=== PATIENT | male | born 1965 | race Caucasian/White ===

== ENCOUNTER 2019-03-09 09:53 | Emergency (ER) | payer OTHER, SELFPAY ==
[2019-03-09] VITALS (10 sets, daily range): BP systolic 130–179; BP diastolic 82–103; PULSE 66–83; RESP 12–18; TEMP 36.7; O2SAT 95–99
--- NOTE | 2019-03-09 10:03 | DI.RAD.S_ITS ---
PROCEDURE: XR CHEST 1V INDICATIONS: chest pain TECHNIQUE: One view of the chest was acquired. COMPARISON: None. FINDINGS: Surgical changes and devices: None. Lungs and pleura: Lungs are clear. No pleural effusions or pneumothorax. Mediastinum: Mediastinal contours appear normal. Heart size is normal. Bones and chest wall: No suspicious bony lesions. Overlying soft tissues appear unremarkable. IMPRESSION: No acute process. Dictated by: Keysha Jarrett M.D. on 03/09/2019 at 10:16 Approved by: Keysha Jarrett M.D. on 03/09/2019 at 10:17
[2019-03-09] MEDS: ASPIRIN 81 MG CHEW TAB 324 MG PO (10:08)
[2019-03-09 10:14] LABS: Add Manual Diff / Slide Review NO; Basophils Absolute Auto 0 /uL (0-100); Basophils Percent Auto 0.6 % (0-2); Eosinophils Absolute Auto 100 /uL (0-450); Eosinophils Percent Auto 1.3 % (2-4); Hematocrit 41.4 % (41-53); Hemoglobin 14.5 g/dL (13.5-17.5); Lymphocytes Absolute Auto 1800 /uL (1100-4500); Lymphocytes Percent Auto 27.4 % (25-40); Mean Corpuscular Hemoglobin 31.5 PG (26-34); Mean Corpuscular Volume 90.1 fL (80-100); Monocytes Absolute Auto 600 /uL (0-900); Monocytes Percent Auto 9.7 % (3-14); Neutrophils Absolute Auto 3900 /uL (1500-7000); Platelet Count 210 X10^3/uL (150-400); Red Cell Distribution Width 12.2 % (11.6-14.8); White Blood Cell Count 6.4 X10^3/uL (4.5-11.0)
--- NOTE | 2019-03-09 10:16 | PC.NURSE ---
Noticed pain in center of chest last night after dinner, felt fatigued after normal activity. Reports some SOB. Had some indigestion earlier that day that resolved with tums. Reports pain is significantly different.
[2019-03-09 10:26] LABS: Alanine Aminotransferase 43 IU/L (<50); Albumin Globulin Ratio 1.7 (1.0-2.8); Alkaline Phosphatase 58 U/L (38-126); Aspartate Aminotransferase 41 IU/L (17-59); Bilirubin Total 0.8 mg/dL (0.2-1.3); Blood Urea Nitrogen 22 mg/dL (9-20); Calcium 9.8 mg/dL (8.4-10.2); Carbon Dioxide 29 mmol/L (22-32); Chloride 98 mmol/L (98-107); Creatine Kinase 77 U/L (55-170); Estimated Glomerular Filt Rate > 60.0 mL/min (>60); Glucose 124 mg/dL (70-100); HEMOLYSIS < 15 (0-50); INR 0.9 (0.9-1.3); Lipase 148 U/L (23-300); Potassium 3.9 mmol/L (3.4-5.1); Prothrombin Time 10.6 SECONDS (10.1-12.7); Sodium 136 mmol/L (137-145)
[2019-03-09 10:28] LABS: PTT Partial Thromboplastin Tim 31 SECONDS (26.4-36.2)
--- NOTE | 2019-03-09 10:30 | ED_ITS ---
HPI - Chest Pain General Chief Complaint: Chest Pain Stated Complaint: Chest Pain t-1 Time Seen by Provider: 03/09/19 10:13 Source: patient Mode of arrival: Ambulatory Limitations: no limitations History of Present Illness HPI narrative: 54-year-old gentleman presents after an episode of severe chest tightness increased fatigue global weakness and headache that lasted for about 2-1/2 hours last night. It occurred after dinner. He had a moderately active sort of the day but nothing that was out of the ordinary for him. Not associated with fever cough chills. After the episode resolved he states that he did sleep well. He woke up this morning still having a 2/10 chest tightness in his chest and comes to the emergency room for additional evaluation. Notes that over the past 2 weeks he has been waking up nightly with a pounding in his chest that lasts only 15-20 seconds and resolves with deep breathing and relaxing. He did have a similar episode last night but describes it is a bit less than previous evenings. Additional history is significant for a presumed episode of atrial fibrillation approximately 2 years ago. He states that it was similar to heart issues his had had he noted a rapid irregular pulse lasting for a couple of hours resolved spontaneously in the evening and he did not follow-up with any physician. He has been told that he typically has high blood pressure when he is in a physician's office but is not on medications for such. He does note that he has had a headache fairly regularly over the past number of weeks. Drinks 5-8 beers and evening and has not considered cutting back. Does not consider this an active problem currently. Nonsmoker. Related Data Home Medications Medication Instructions Recorded Confirmed No Known Home Medications 03/09/19 03/09/19 Allergies Allergy/AdvReac Type Severity Reaction Status Date / Time No Known Drug Allergies Allergy Verified 03/09/19 10:12 Review of Systems Review of Systems ROS Unobtainable: All systems reviewed & are unremarkable except as noted in HPI and below Patient History Family History Other Heart disease Social History Smoking Status: Former smoker Smoking Status: Former smoker alcohol intake frequency: 3 or more drinks per day Alcohol type: beer Substance Use Type: does not use Exam Narrative Exam Narrative: General: Healthy appearing, in no acute distress. Able to give a complete and coherent history. Well-nourished well-developed HEENT: Moist mucous membranes, normal sclera with reactive pupils, Neck: No JVD, supple Respiratory: Lungs are clear to auscultation, no wheezing no rales no rhonchi. Full and symmetrical air movement Cardiac: Regular rate and rhythm no murmurs no bruits Abdomen: Soft nontender good bowel tones, no flank pain Skin: Warm and dry, no rashes Neurologic: Grossly neurologically intact with no obvious asymmetries or ab normalities Extremities: No trauma, well perfused Psych: Cooperative, appropriate insight and affect Initial Vital Signs Initial Vital Signs: Vital Signs Temperature 98.1 F 03/09/19 09:54 Pulse Rate 83 03/09/19 09:54 Respiratory Rate 18 03/09/19 09:54 Blood Pressure 179/99 H 03/09/19 09:54 Pulse Oximetry 99 03/09/19 09:54 Course Course Course Narrative: Presents with a definite episode of chest pain occurring last night and some chest pressure residual this morning. Significantly hypertensive with low-grade headache. Also fairly significant drinking history with 5-8 to 12 beers every evening. Aspirin given. Will use metoprolol to see if this alleviates any of his pain he gets his blood pressure down. Will also try some sublingual nitro see if this alleviates the chest pressure and will proceed with labs chest x-ray an EKG Orders Ordered: ED Orders 03/09/19 10:03 XR chest 1V Stat 03/09/19 10:04 EKG-12 Lead Stat 03/09/19 10:08 Complete Blood Count AUTO DIFF Stat Comprehensive Metabolic Panel Stat Lipase Stat Partial Thromboplastin Time Stat Prothrombin Time INR Stat Troponin & CK Cardiac Panel Stat 03/09/19 12:43 Troponin I Stat Nitroglycerin (Nitrostat) 0.4 mg SL [id number] PRN PRN Reason: Chest Pain Discontinued Medications Aspirin (Aspirin Chew) 324 mg PO NOW ONE Stop: 03/09/19 10:05 Last Admin: 03/09/19 10:08 Dose: 324 mg Documented by: SHIRLEY Metoprolol Tartrate (Lopressor) 5 mg IV Q5M [facility] Stop: 03/09/19 10:56 Last Admin: 03/09/19 12:34 Dose: Not Given Documented by: Admin: 03/09/19 12:34 Dose: Not Given Documented by: Admin: 03/09/19 12:34 Dose: Not Given Documented by: ALVAREZ Reevaluation(s) Reevaluation #1: Blood pressure is down and chest pressure has completely resolved. Both nitro and IV metoprolol were held as he was asymptomatic Vital Signs Vital signs: Vital Signs - 8 hr 03/09/19 09:54 03/09/19 10:20 03/09/19 10:25 Temperature 98.1 F Pulse Rate 83 75 Respiratory Rate 18 17 Blood Pressure 179/99 H Blood Pressure [Left Arm] 179/98 H 170/103 H Pulse Oximetry 99 96 03/09/19 10:49 03/09/19 11:45 03/09/19 12:00 Temperature Pulse Rate 70 67 80 Respiratory Rate 13 15 16 Blood Pressure Blood Pressure [Left Arm] 143/88 H 144/87 H 136/82 Pulse Oximetry 97 95 96 03/09/19 12:45 03/09/19 13:15 03/09/19 13:45 Temperature Pulse Rate 66 72 78 Respiratory Rate 12 15 16 Blood Pressure Blood Pressure [Left Arm] 147/85 H 134/85 133/83 Pulse Oximetry 97 96 97 03/09/19 14:16 Temperature Pulse Rate 76 Respiratory Rate 16 Blood Pressure Blood Pressure [Left Arm] 130/82 Pulse Oximetry 96 MDM - Chest Pain Medical Records Data Attestation: I reviewed the patient's medical records. Lab Data Result diagrams: 03/09/19 10:08 03/09/19 10:08 Labs: Lab Results 03/09/19 03/09/19 03/09/19 Range/Units 10:08 10:08 10:08 WBC 6.4 (4.5-11.0) X10^3/uL RBC 4.60 (4.5-5.9) X10^6/uL Hgb 14.5 (13.5-17.5) g/dL Hct 41.4 (41-53) % MCV 90.1 (80-100) fL MCH 31.5 (26-34) PG MCHC 35.0 (30-36) % RDW 12.2 (11.6-14.8) % Plt Count 210 (150-400) X10^3/uL Neut % (Auto) 61.0 (50-75) % Lymph % (Auto) 27.4 (25-40) % [place] % (Auto) 9.7 (3-14) % Eos % (Auto) 1.3 L (2-4) % Baso % (Auto) 0.6 (0-2) % Neut # (Auto) 3900 (2309-6587) /uL Lymph # (Auto) 1800 (7371-1411) /uL [place] # (Auto) 600 (0-900) /uL Eos # (Auto) 100 (0-450) /uL Baso # (Auto) 0 (0-100) /uL PT 10.6 (10.1-12.7) SECONDS INR 0.9 (0.9-1.3) APTT 31 (26.4-36.2) SECONDS Sodium 136 L (137-145) mmol/L Potassium 3.9 (3.4-5.1) mmol/L Chloride 98 (98-107) mmol/L Carbon Dioxide 29 (22-32) mmol/L BUN 22 H (9-20) mg/dL Creatinine 1.00 (0.66-1.25) mg/dL Estimated GFR > 60.0 (>60) mL/min BUN/Creatinine Ratio 22.0 (6-22) Glucose 124 H (70-100) mg/dL Calcium 9.8 (8.4-10.2) mg/dL Total Bilirubin 0.8 (0.2-1.3) mg/dL AST 41 (17-59) IU/L ALT 43 (<50) IU/L Alkaline Phosphatase 58 (38-126) U/L Total Creatine Kinase 77 (55-170) U/L CK-MB (CK-2) TNP CK-MB (CK-2) Rel Index TNP Troponin I < 0.012 (0.01-0.034) ng/mL Total Protein 8.0 (6.3-8.2) g/dL Albumin 5.0 (3.5-5.0) g/dL Globulin 3.0 (1.7-4.1) g/dL Albumin/Globulin Ratio 1.7 (1.0-2.8) Lipase 148 (23-300) U/L 03/09/ Range/Units 12:43 WBC (4.5-11.0) X10^3/uL RBC (4.5-5.9) X10^6/uL Hgb (13.5-17.5) g/dL Hct (41-53) % MCV (80-100) fL MCH (26-34) PG MCHC (30-36) % RDW (11.6-14.8) % Plt Count (150-400) X10^3/uL Neut % (Auto) (50-75) % Lymph % (Auto) (25-40) % [place] % (Auto) (3-14) % Eos % (Auto) (2-4) % Baso % (Auto) (0-2) % Neut # (Auto) (4199-4750) /uL Lymph # (Auto) (2076-3770) /uL [place] # (Auto) (0-900) /uL Eos # (Auto) (0-450) /uL Baso # (Auto) (0-100) /uL PT (10.1-12.7) SECONDS INR (0.9-1.3) APTT (26.4-36.2) SECONDS Sodium (137-145) mmol/L Potassium (3.4-5.1) mmol/L Chloride (98-107) mmol/L Carbon Dioxide (22-32) mmol/L BUN (9-20) mg/dL Creatinine (0.66-1.25) mg/dL Estimated GFR (>60) mL/min BUN/Creatinine Ratio (6-22) Glucose (70-100) mg/dL Calcium (8.4-10.2) mg/dL Total Bilirubin (0.2-1.3) mg/dL AST (17-59) IU/L ALT (<50) IU/L Alkaline Phosphatase (38-126) U/L Total Creatine Kinase (55-170) U/L CK-MB (CK-2) CK-MB (CK-2) Rel Index Troponin I < 0.012 (0.01-0.034) ng/mL Total Protein (6.3-8.2) g/dL Albumin (3.5-5.0) g/dL Globulin (1.7-4.1) g/dL Albumin/Globulin Ratio (1.0-2.8) Lipase (23-300) U/L Initial troponin is unremarkable. Will repeat at 2 hours Imaging Data Chest x-ray: Radiologist's impression: IMPRESSION: No acute process. Dictated by: Keysha Jarrett M.D. on 03/09/2019 at 10:16 ECG Data Attestation: I personally reviewed and interpreted this ECG as follows: Interpretation: Normal sinus rhythm at a rate of 78. No significant left ventricular hypertrophy. Normal axis normal intervals. Minor nonspecific ST depression anteriorly MDM Narrative Medical decision making narrative: HEART Pathway for Early Discharge in Acute Chest Pain from [facility] on 03/09/2019 RESULT SUMMARY: 2 points HEART Pathway Score Low risk 0.9?1.7% 30-day MACE Repeat troponin at 3 hours and if negative, discharge home with outpatient follow-up. INPUTS: History ?> 1 = Moderately suspicious EKG ?> 0 = Normal Age ?> 1 = 45-64 Risk factors ?> 0 = No known risk factors Initial troponin ?> 0 = ?normal limit We also discussed his alcohol consumption. Recommended a 3 month period of abstinence to see if that helps with his overall malaise as well as headaches. He has an appointment with his primary care physician tomorrow morning and I recommended that they discuss blood pressure as well as his alcohol use. Repeat troponin is unremarkable. Patient is feeling significantly better with blood pressure in the 130/70 range. Discharge home is safe at this time Discharge Plan Departure Patient Disposition: Home Clinical Impression: Alcohol use Chest pain Qualifiers: Chest pain type: unspecified Qualified Code(s): R07.9 - Chest pain, unspecified Hypertension Qualifiers: Hypertension type: unspecified Qualified Code(s): I10 - Essential (primary) hypertension Instructions: Essential Hypertension Activity Restrictions/Additional Instructions: Thank you for coming in today Your initial heart workup was reassuring. A not seeing signs of an acute heart attack or heart attack like syndrome. Your blood pressure was quite high on arrival and corresponded to the chest pressure as well as your headache. Your blood pressure came down nicely all by itself and her symptoms did improve. You do need to follow-up with your primary care physician so please keep your appointment already scheduled for tomorrow morning. I would recommend that you discuss additional cardiac risk stratification testing (stress testing or nuclear medicine testing). You also need to discuss your blood pressure the headaches you been having the palpitations in the middle of the night and cutti ng back on your alcohol use. My recommendation would be to try 3 months of not drinking at all and seeing how all of your symptoms change. If you have recurrent pain, changes to year symptoms otherwise or feeling worse please return to the emergency room and I am happy to re-evaluate I wish you the very best Prescriptions: No Action No Known Home Medications RF: 0
[2019-03-09 10:37] LABS: Troponin I < 0.012 ng/mL (0.01-0.034)
--- NOTE | 2019-03-09 10:52 | PC.NURSE ---
Patient pain free at this time. Blood pressure 143/88. Provider aware in decrease in BP and change in pain level. Holding on medication orders at this time. patient has call light in reach and aware to notify RN of any changes in chest pain.
[2019-03-09 13:16] LABS: Troponin I < 0.012 ng/mL (0.01-0.034)
== END 2019-03-09 14:27 | disposition home or self-care (01) ==
PROVIDERS: Emergency Provider Emergency Medicine
DX: R07.9 Chest pain, unspecified (principal); I10 Essential (primary) hypertension; Z72.89 Other problems related to lifestyle
CPT/HCPCS: 36415; 71045; 80053; 82550; 83690; 84484; 85025; 85610; 85730; 93005; 93010; 99284; 99285

== ENCOUNTER → 2019-07-29 14:04 | Outpatient (CLI) | payer OTHER, SELFPAY ==
[2019-07-29 15:03] LABS: Add Manual Diff / Slide Review NO; Basophils Absolute Auto 0 /uL (0-100); Basophils Percent Auto 0.6 % (0-2); Eosinophils Absolute Auto 100 /uL (0-450); Eosinophils Percent Auto 1.6 % (2-4); Hematocrit 38.9 % (41-53); Hemoglobin 13.5 g/dL (13.5-17.5); Lymphocytes Absolute Auto 2300 /uL (1100-4500); Lymphocytes Percent Auto 29.9 % (25-40); Mean Corpuscular HGB Conc 34.7 % (30-36); Mean Corpuscular Hemoglobin 31.2 PG (26-34); Monocytes Absolute Auto 800 /uL (0-900); Monocytes Percent Auto 10.6 % (3-14); Neutrophils Absolute Auto 4400 /uL (1500-7000); Neutrophils Percent Auto 57.3 % (50-75); Platelet Count 212 X10^3/uL (150-400); Red Blood Cell Count 4.33 X10^6/uL (4.5-5.9); Red Cell Distribution Width 12.7 % (11.6-14.8); White Blood Cell Count 7.6 X10^3/uL (4.5-11.0)
[2019-07-29 16:14] LABS: BUN Creatinine Ratio 27.7 (6-22); Blood Urea Nitrogen 26 mg/dL (9-20); Calcium 9.3 mg/dL (8.4-10.2); Carbon Dioxide 28 mmol/L (22-32); Chloride 101 mmol/L (98-107); Cholesterol 223 mg/dL (140-199); Estimated Glomerular Filt Rate > 60.0 mL/min (>60); Glucose 104 mg/dL (70-100); HDL Cholesterol 47 mg/dL (40-60); HEMOLYSIS < 15 (0-50); LDL Cholesterol Calculated 114 mg/dL (<100); Sodium 138 mmol/L (137-145); Triglycerides 309 mg/dL (35-150)
== END ==
PROVIDERS: PCP Family Medicine; Referring Provider Internal Medicine Cardiovascular Disease; Visit Provider Internal Medicine Cardiovascular Disease
DX: I10 Essential (primary) hypertension (principal)
CPT/HCPCS: 36415; 80048; 80061; 85025

== ENCOUNTER 2020-02-28 11:21 | Emergency (ER) | payer OTHER, SELFPAY ==
[2020-02-28 11:34] VITALS: BP 157/74; PULSE 86; O2SAT 98
[2020-02-28 11:57] VITALS: BP 157/74; PULSE 89; RESP 16; TEMP 36.5; O2SAT 95; BMI 33.6
[2020-02-28 12:00] VITALS: BP 145/87; PULSE 84; O2SAT 94
--- NOTE | 2020-02-28 12:33 | ED_ITS ---
HPI - Back Pain/Injury <AKIL Cameron - Last Filed: 02/28/20 13:53> General Chief Complaint: Back Pain/Injury Stated Complaint: back is killing me Time Seen by Provider: 02/28/20 12:15 Source: patient Mode of arrival: Ambulatory Limitations: no limitations History of Present Illness HPI Narrative: This is a 55-year-old male, former smoker, has history significant for scoliosis, hypertension, GERD, intermittent low back pain presents to ED with chief complain of nontraumatic left-sided low back pain radiating down to left leg up to need level with some numbness. Patient reports was working on putting [employer] lights walking up and down the ladders and picked up some kindling about a week ago and starting to have low back pain after hours. Patient reports he had similar back pain in the past intermittently depends on the level of activities or after certain movements. Patient visited chiropractor 3 days ago and had little improvement the following day but has increased pain this morning. Patient denies urinary symptoms such as urgency, frequency, dysuria but noticed slightly more concentrated urine this morning and contributed to decreased water intake over night. Reports pain as 8/10 when moves, standing, or during ambulation and describes as a spasming which last seconds to intermittently otherwise dull aches as baseline. Patient denies fever, chills, nausea or vomiting. Patient denies chest pain, short of breath, COVID symptoms, or known exposure to COVID patients. Patient denies previous back surgeries or rashes on his back. Patient is ambulatory but with limping gait due to discomfort. He denies weakness to legs. He has been using Aleve 3 tabs about twice a day at home and topical Salompas without much help. Related Data Previous Rx's Medication Instructions Recorded cyclobenzaprine 10 mg PO BID PRN #7 tab 02/28/20 prednisone 40 mg PO DAILY 4 Days #8 tab 02/28/20 Allergies Allergy/AdvReac Type Severity Reaction Status Date / Time No Known Drug Allergies Allergy Verified 03/09/19 10:12 Review of Systems <AKIL Cameron - Last Filed: 02/28/20 13:53> Review of Systems Narrative: General: Denies fever, chills, fatigue, malaise, sweats. HEENT: Denies sinus pain, ear pain, sore throat, difficulty swallowing, dizziness. Respiratory: Denies dyspnea, cough, wheezing, hemoptysis, sputum. Cardiovascular: Denies chest pain, palpitations, orthopnea, edema. Gastrointestinal: Denies nausea, vomiting, abdominal pain, diarrhea, constipation, melena. : Denies dysuria, frequency, incontinence, hematuria, urinary retention. Musculoskeletal: See HPI Skin: Denies rash, skin lesions, or other. Neurologic: Denies weakness, headache, numbness, change in speech, confusion, seizures, incoordination. Psychiatric: No concerning psychosocial issues. 12-point review of systems is negative except for those stated above. Patient History <AKIL Cameron - Last Filed: 02/28/20 13:53> Medical History Back pain GERD (gastroesophageal reflux disease) Family History Other Heart disease Social History Smoking Status: Former smoker Smoking Status: Former smoker alcohol intake frequency: 3 or more drinks per day Alcohol type: beer Substance Use Type: does not use Exam <AKIL Cameron - Last Filed: 02/28/20 13:53> Narrative Exam Narrative: GEN: Alert, oriented x 3, well appearing and nourished, and in no acute distress. Head: Normal cephalic, atraumatic. No scalp or temporal tenderness, palpable mass or rash. EYES: Pupils are equal, round, and reactive to light and accommodation. Extraocular muscles are intact bilaterally. There is no subconjunctival hemorrhage, exudate and sclera non-icteric. ENT: Hearing grossly intact. Airway patent. Neck: Trachea in midline. No JVD, non-tender without lymphadenopathy. No masses or thyroid megaly. Supple, non-tender and no meningeal signs. CARDIAC: Normal regular rate and rhythm without murmurs, gallops, or rubs. No chest wall tenderness. No peripheral edema, cyanosis or pallor. Capillary refill is less than 2 seconds. RESPIRATORY: Lungs are clear to auscultate bilaterally. No cough, wheezes, rales, or rhonchi. No stridor, respiratory distress, increase work of breathing, or accessary muscle used. ABD: Abdomen soft, nontender and non-distended. No guarding or rebound tenderness to palpate. Bowel sounds are normal in all 4 quadrants. There is no palpable masses or organomegaly. EXT: Full painless ROM of all extremities with no loss of strength, effusion or edema. Patient reports some numbness to left lateral upper leg. SKIN: Warm, dry, normal color for patient. No erythema, lesions or rash over visible areas. BACK: No spinous or paraspinous tenderness to palpate. Pain in deep near left hip region. No deformity or crepitance. No flank tenderness. No rashes. NEUROLOGICAL: Alert and oriented to place, time and person. Sensation and motor function intact bilaterally. No facial droops, dysphasia. PSYCHIATRIC: Good judgement and reason, without hallucinations, abnormal affect or abnormal behaviors during the examination. Patient is not suicidal. Initial Vital Signs Initial Vital Signs: Vital Signs Pulse Rate 86 02/28/20 11:34 Blood Pressure 157/74 H 02/28/20 11:34 Pulse Oximetry 98 02/28/20 11:34 <Barby Garnica DO - Last Filed: 02/29/20 07:16> Initial Vital Signs Initial Vital Signs: Vital Signs Pulse Rate 86 02/28/20 11:34 Blood Pressure 157/74 H 02/28/20 11:34 Pulse Oximetry 98 02/28/20 11:34 Scores <AKIL Cameron - Last Filed: 02/28/20 13:53> GCS [place] coma scale eye opening: Spontaneous [place] coma scale verbal response: Orientated [place] coma scale motor response: Obey commands [place] coma scale total score: 15 Course <AKIL Cameron - Last Filed: 02/28/20 13:53> Orders Ordered: Discontinued Medications Acetaminophen (Acetaminophen 325 Mg Tablet) 650 mg PO NOW ONE Stop: 02/28/20 12:33 Last Admin: 02/28/20 12:45 Dose: 650 mg Documented by: LOU Cyclobenzaprine HCl (Cyclobenzaprine 10 Mg Tablet) 10 mg PO NOW ONE Stop: 02/28/20 12:33 Last Admin: 02/28/20 12:45 Dose: 10 mg Documented by: LOU Prednisone (Prednisone 20 Mg Tablet) 40 mg PO NOW ONE Stop: 02/28/20 12:33 Last Admin: 02/28/20 12:45 Dose: 40 mg Documented by: LOU Reevaluation(s) Reevaluation #1: Patient reports low back pain improved at this time. Time: 13:52 Vital Signs Vital signs: Vital Signs - 8 hr 02/28/20 11:34 02/28/20 11:57 02/28/20 12:00 Temperature 97.7 F Pulse Rate 86 89 84 Respiratory Rate 16 Blood Pressure 157/74 H 157/74 H 145/87 H Pulse Oximetry 98 95 94 02/28/20 13:48 Temperature Pulse Rate 74 Respiratory Rate 16 Blood Pressure 143/88 H Pulse Oximetry 97 <Barby Garnica DO - Last Filed: 02/29/20 07:16> Orders Ordered: Discontinued Medications Acetaminophen (Acetaminophen 325 Mg Tablet) 650 mg PO NOW ONE Stop: 02/28/20 12:33 Last Admin: 02/28/20 12:45 Dose: 650 mg Documented by: LOU Cyclobenzaprine HCl (Cyclobenzaprine 10 Mg Tablet) 10 mg PO NOW ONE Stop: 02/28/20 12:33 Last Admin: 02/28/20 12:45 Dose: 10 mg Documented by: LOU Prednisone (Prednisone 20 Mg Tablet) 40 mg PO NOW ONE Stop: 02/28/20 12:33 Last Admin: 02/28/20 12:45 Dose: 40 mg Documented by: LOU Vital Signs Vital signs: Vital Signs - 8 hr 02/28/20 11:34 02/28/20 11:57 02/28/20 12:00 Temperature 97.7 F Pulse Rate 86 89 84 Respiratory Rate 16 Blood Pressure 157/74 H 157/74 H 145/87 H Pulse Oximetry 98 95 94 02/28/20 13:48 Temperature Pulse Rate 74 Respiratory Rate 16 Blood Pressure 143/88 H Pulse Oximetry 97 MDM - Back Pain/Injury <AKIL Cameron - Last Filed: 02/28/20 13:53> Differential Diagnosis Differential diagnosis: Likely lumbar radiculopathy, sciatica, strain of lumbar region, pyelonephritis and other (Renal stone, shingles) Medical Records Attestation: I reviewed the patient's medical records. Lab Data Attestation: I reviewed the patient's lab results. Labs: Urine Dip Bedside Urine Glucose Negative Bedside Urine Bilirubin - Negative Bedside Urine Ketone - Negative Urine Specific [place] 1.025 Bedside Urine Occult Blood +/- Bedside Urine pH 6 Bedside Urine Protein - Negative Bedside Urine Urobilinogen - Negative Bedside Urine Nitrite - Negative Bedside Urine Leukocytes - Negative Esterase MDM Narrative Medical decision making narrative: This is a 55-year-old male who presents to ED with left low back pain radiating to left lateral thigh up to knee region with some numbness. Patient reports had similar low back pain in the past intermittently. Physical exam was unremarkable. He had intact equal strength in bilaterally. No rashes in the back, mass, redness, or warmth. Patient's history and physical exam is not consistent with renal stone, shingles, or infection. Urine test does not indicate UTI. Patient is afebrile with slightly elevated blood pressure with systolic in 150s. Patient was treated with prednisone 40 mg, Flexeril, and Tylenol since he had taken Aleve and using Salompas this morning before coming into ED. patient was medicated prednisone 40 mg, Flexeril 10 mg and Tylenol which improved his symptoms. He is being discharge to home with same therapy and advise continue to use [id number] Tylenol and or Motrin as baseline. Work off note for 1 day provided in case. Return precautions were discussed with patient and he verbalized understanding and agreement with the treatment plan. <Barby Garnica, DO - Last Filed: 02/29/20 07:16> Lab Data Labs: Urine Dip Bedside Urine Glucose Negative Bedside Urine Bilirubin - Negative Bedside Urine Ketone - Negative Urine Specific [place] 1.025 Bedside Urine Occult Blood +/- Bedside Urine pH 6 Bedside Urine Protein - Negative Bedside Urine Urobilinogen - Negative Bedside Urine Nitrite - Negative Bedside Urine Leukocytes - Negative Esterase Discharge Plan Departure Patient Disposition: Home Clinical Impression: Acute lumbar back pain Qualifiers: Back pain laterality: left Sciatica presence: with sciatica Sciatica laterality: sciatica of left side Qualified Code(s): M54.42 - Lumbago with sciatica, left side Instructions: DI for Back Pain With Sciatica Activity Restrictions/Additional Instructions: You have been diagnosed with [left lumbar pain radiating to left thigh with numbness likely sciatica. You were medicated with prednisone and Flexeril in ED.]. What to do: *Take your medications as directed. Please continue with [id number] Tylenol and Aleve as baseline. You can continue to use Salompas or OTC Lidocaine patch to use on affected site. Please use Flexeril as needed for muscle relaxation. This medication can cause drowsiness so please do not drive, drink alcohol, or operate heavy equipments. Prednisone daily for next 4 more days. This medication have been transmitted to [facility] in [place]. *Follow up with your primary care provider in 2-3 days, call for an appointment. Let them know you were seen in the ED and that we asked you to be seen in follow up. *Return to ED if you have any new, worsening, or concerning symptoms, such as [worsening pain/weakness, numbness lower extremities, fever, rash, urinary symptoms, blood in her urine, chest pain, breathing difficulty, unable to tolerate medications or any acute concerns]. Prescriptions: New cyclobenzaprine 10 mg tablet 10 mg PO BID PRN (Reason: muscle spasm) Qty: 7 RF: 0 prednisone 20 mg tablet 40 mg PO DAILY 4 Days Qty: 8 RF: 0 Referrals: Yulissa Judge DO [Primary Care Provider] - Stand Alone Forms: Work Release Note <Barby Garnica DO - Last Filed: 02/29/20 07:16> Cosign ED Attending Cospilarature Attestation: I was immediately available in the department for consultation. This documentation has been reviewed and I agree with assessment and plan. Supervised by Barby Garnica DO
[2020-02-28] MEDS: CYCLOBENZAPRINE 10 MG TABLET PO (12:45)
[2020-02-28] MEDS: predniSONE 20 MG TABLET 40 MG PO (12:45)
[2020-02-28] MEDS: ACETAMINOPHEN 325 MG TABLET 650 MG PO (12:45)
[2020-02-28 13:48] VITALS: BP 143/88; PULSE 74; RESP 16; O2SAT 97
== END 2020-02-28 14:14 | disposition home or self-care (01) ==
PROVIDERS: Emergency Provider Nurse Practitioner Family; PCP Family Medicine
DX: M54.42 Lumbago with sciatica, left side (principal); K21.9 Gastro-esophageal reflux disease without esophagitis; I10 Essential (primary) hypertension; M41.9 Scoliosis, unspecified
CPT/HCPCS: 81003; 99281; 99283

== ENCOUNTER → 2023-01-01 12:39 | Outpatient (CLI) | payer OTHER, SELFPAY ==
--- NOTE | 2023-01-01 | DI.MRI.S_ITS ---
PROCEDURE: MR LUMBAR SPINE WO CON INDICATIONS: LUMBAR PAIN TECHNIQUE: Noncontrast sagittal T1 spin echo and T2 fast echo, sagittal STIR, and T2 fast spin echo through the lumbar spine. In cases with scoliosis, additional coronal T2 fast spin echo may be performed. COMPARISON: Outside Facility, MR, MR LUMBAR SPINE WO CON, 08/07/2021, 9:30. [facility], CR, XR LUMBAR SPINE WITH FLEXION EXTENSION 5 VIEWS, 12/13/2022, 13:53. FINDINGS: Image quality: Excellent. Alignment and Curvature: There is moderate dextroconvex lumbar scoliosis. There is minimal retrolisthesis at L2-L3, L3-L4, and L5-S1. Bone Marrow: Marrow is of normal overall signal. No acute vertebral body compression fractures. Spinal Cord: Conus medullaris terminates at the L1-L2 level. Visualized cord demonstrates normal signal and size. Paraspinous Soft Tissues: No paravertebral masses. T12-L1: No significant abnormality is seen. L1-L2: Moderate loss of disc height is seen. Loss of disc signal is seen. Mild to moderate disc bulge is seen, with a mild central disc protrusion. No significant neural foraminal or central canal narrowing can be seen. When comparison is made with the prior images, these findings are similar. L2-L3: At least moderate loss of disc height and disc signal can be seen. Bridging anterior osteophytes are seen. At least moderate disc bulge is seen at this level. Moderate facet joint hypertrophy is seen. Moderate bilateral neural foraminal narrowing is seen. Moderate central canal narrowing is seen. When comparison is made with the prior images, these findings are similar. L3-L4: Silu-kh-tqpyouwy loss of disc height and disc signal can be seen. There is a Schmorl's node seen involving the superior endplate of L4 posteriorly, with surrounding edema. This is new compared to the prior examination. Moderate loss of disc height is seen. Moderate disc bulge is seen at this level. There is a superimposed central disc protrusion. There is a focal annular fissure seen posteriorly. Moderate facet joint hypertrophy is seen. There is abtc-gl-msirgwsc left-sided and moderate right-sided neural foraminal narrowing. Moderate central canal narrowing is seen. These imaging findings have progressed compared to the prior study. L4-L5: The disc height and disk signal are relatively well-preserved. Mild to moderate disc bulge is seen. Moderate facet joint hypertrophy is seen. There is moderate left-sided and at least moderate right-sided neural foraminal narrowing. Mild to moderate central canal narrowing is seen. When comparison is made with the prior images, these findings are similar. L5-S1: Moderate loss of disc height is seen. Loss of disc signal is seen. Reactive marrow endplate changes are seen posteriorly, which are hyperintense on T1-weighted and T2-weighted imaging and most consistent with fatty metaplasia (Modic type II changes). Mild to moderate disc bulge is seen. There is moderate right-sided and mild left-sided facet hypertrophy. There is at least moderate right-sided neural foraminal narrowing can with a degree of compression upon the exiting right L5 nerve root. There is minimal to mild left-sided neural foraminal narrowing. Minimal central canal narrowing is seen. These imaging findings have progressed compared to the prior study. IMPRESSION: Multiple levels of lumbar spine degenerative change can be seen, with interval progression at L3-L4 and L5-S1 compared to 2021. Dictated by: Antonio Mendez M.D. on 01/02/2023 at 16:59 Approved by: Antonio Mendez M.D. on 01/02/2023 at 17:04
== END ==
PROVIDERS: PCP Family Medicine; Referring Provider Physician Assistant Surgical; Visit Provider Physician Assistant Surgical
DX: S39.012A Strain of muscle, fascia and tendon of lower back, initial encounter (principal)
CPT/HCPCS: 72148

== ENCOUNTER 2023-06-19 09:22 | Emergency (ER) | payer OTHER, SELFPAY ==
[2023-06-19] VITALS (21 sets, daily range): BP systolic 124–172; BP diastolic 72–99; PULSE 69–87; RESP 14–25; TEMP 36.7; O2SAT 90–99
--- NOTE | 2023-06-19 09:31 | DI.RAD.S_ITS ---
PROCEDURE: XR CHEST 1V INDICATIONS: chest pain TECHNIQUE: One view of the chest was acquired. COMPARISON: [facility], CR, XR CHEST 1V, 03/09/2019, 10:07. FINDINGS: Surgical changes and devices: None. Lungs and pleura: Lungs are clear. No pleural effusions or pneumothorax. Mediastinum: Mediastinal contours appear normal. Heart size is normal. Bones and chest wall: No suspicious bony lesions. Overlying soft tissues appear unremarkable. IMPRESSION: No acute cardiopulmonary abnormality is seen. Dictated by: Keysha Jarrett M.D. on 06/19/2023 at 9:50 Approved by: Keysha Jarrett M.D. on 06/19/2023 at 9:50
--- NOTE | 2023-06-19 09:34 | ED_ITS ---
HPI - General Adult General Chief complaint: Chest Pain Stated complaint: chest pain Time Seen by Provider: 06/19/23 09:27 History of Present Illness HPI narrative: 58yoM with PMH de la rosa's esophagus presents by private vehicle from home for left-sided chest burning and left shoulder pain. Patient states that he woke up in his usual state of health, ate his breakfast as per usual and started his drive to work. He states that on the way to work he noticed the burning in his chest and also began to have left-sided shoulder pain. The pain grew in intensity after he arrived to work and so he decided to present for evaluation. He states that pain is currently improved. Reports history alcohol use of 4-7 beers per day, former smoker, no active smoking. Denies history of heart disease or family history of heart disease. Related Data Previous Rx's Medication Instructions Recorded cyclobenzaprine 10 mg tablet 10 mg PO BID PRN muscle spasm #7 02/28/20 tabs Allergies Allergy/AdvReac Type Severity Reaction Status Date / Time No Known Drug Allergies Allergy Verified 03/09/19 10:12 Review of Systems Review of Systems Narrative: Negative except as noted above Patient History Medical History GERD (gastroesophageal reflux disease) Back pain Family History Other Heart disease Social History Smoking Status: Former smoker Smoking Status: Former smoker alcohol intake frequency: 3 or more drinks per day Alcohol type: beer Substance Use Type: does not use Exam Initial Vital Signs Initial Vital Signs: Vital Signs Temperature 98.1 F 06/19/23 09:25 Pulse Rate 85 06/19/23 09:25 Respiratory Rate 14 06/19/23 09:25 Blood Pressure 172/99 H 06/19/23 09:25 Pulse Oximetry 99 06/19/23 09:25 Oxygen Delivery Method Room Air 06/19/23 09:25 Const: Awake, alert, no acute distress, nontoxic appearing Cardiac: regular rate, regular rhythm RESP: unlabored, clear bilaterally, no wheezing GI: Soft, nontender, nondistended, no rebound, no guarding MSK: Atraumatic, full range of motion, pulses equal Skin: Warm, Dry, intact, no rashes Neuro: AO x3, CN II-XII grossly intact, moves all extremities Course Orders Ordered: Discontinued Medications Aspirin (Aspirin 81 Mg Chew Tab) 324 mg PO NOW ONE Stop: 06/19/23 09:31 Last Admin: 06/19/23 11:01 Dose: 324 mg Documented By: BEN Sodium Chloride (Normal Saline 0.9%) 1,000 mls @ 150 mls/hr IV CONT PREMA Last Admin: 06/19/23 11:04 Dose: 150 mls/hr Documented By: BEN Vital Signs Vital signs: Vital Signs - 8 hr 06/19/23 09:25 06/19/23 09:32 06/19/23 09:45 Temperature 98.1 F Pulse Rate 85 87 86 Respiratory Rate 14 22 17 Blood Pressure 172/99 H Pulse Oximetry 99 94 90 L Oxygen Delivery Method Room Air Room Air 06/19/23 09:46 06/19/23 09:46 06/19/23 10:00 Temperature Pulse Rate 85 83 Respiratory Rate 17 17 Blood Pressure 146/83 H Pulse Oximetry 90 L 91 Oxygen Delivery Method 06/19/23 10:00 06/19/23 10:15 06/19/23 10:15 Temperature Pulse Rate 81 Respiratory Rate 16 Blood Pressure 128/82 129/84 Pulse Oximetry 93 Oxygen Delivery Method 06/19/23 10:30 06/19/23 10:30 06/19/23 10:45 Temperature Pulse Rate 81 Respiratory Rate 16 Blood Pressure 132/84 124/83 Pulse Oximetry 93 Oxygen Delivery Method 06/19/23 10:45 06/19/23 11:00 06/19/23 11:00 Temperature Pulse Rate 80 77 Respiratory Rate 16 19 Blood Pressure 136/89 Pulse Oximetry 92 94 Oxygen Delivery Method 06/19/23 11:15 06/19/23 11:15 06/19/23 11:30 Temperature Pulse Rate 78 Respiratory Rate 15 Blood Pressure 132/84 143/92 H Pulse Oximetry 96 Oxygen Delivery Method 06/19/23 11:30 06/19/23 11:45 06/19/23 11:45 Temperature Pulse Rate 74 73 Respiratory Rate 17 14 Blood Pressure 142/90 H Pulse Oximetry 94 97 Oxygen Delivery Method 06/19/23 12:00 06/19/23 12:00 06/19/23 12:15 Temperature Pulse Rate 74 Respiratory Rate 14 Blood Pressure 143/90 H 142/89 H Pulse Oximetry 92 Oxygen Delivery Method 06/19/23 12:15 06/19/23 12:30 06/19/23 12:30 Temperature Pulse Rate 73 72 Respiratory Rate 14 18 Blood Pressure 132/82 Pulse Oximetry 95 97 Oxygen Delivery Method Room Air Medical Decision Making Differential Diagnosis Differential Diagnosis: Atypical chest pain, stable angina, costochondritis, reflux Lab Data 06/19/23 09:33 06/19/23 09:33 Labs: Lab Results 06/19/23 06/19/23 Range/Units 09:33 12:26 WBC 8.6 (4.5-11.0) X10^3/uL RBC 4.32 L (4.5-5.9) X10^6/uL Hgb 13.7 (13.5-17.5) g/dL Hct 39.4 L (41-53) % MCV 91.3 (80-100) fL MCH 31.7 (26-34) PG MCHC 34.7 (30-36) % RDW 12.0 (11.6-14.8) % Plt Count 218 (150-400) X10^3/uL Neut % (Auto) 62.6 (50-75) % Lymph % (Auto) 24.5 L (25-40) % [place] % (Auto) 10.3 (3-14) % Eos % (Auto) 1.9 L (2-4) % Baso % (Auto) 0.7 (0-2) % Neut # (Auto) 5400 (2405-9370) /uL Lymph # (Auto) 2100 (7968-8591) /uL [place] # (Auto) 900 (0-900) /uL Eos # (Auto) 200 (0-450) /uL Baso # (Auto) 100 (0-100) /uL Sodium 136 L (137-145) mmol/L Potassium 3.8 (3.4-5.1) mmol/L Chloride 102 (98-107) mmol/L Carbon Dioxide 30 (22-32) mmol/L BUN 17 (9-20) mg/dL Creatinine 0.76 (0.66-1.25) mg/dL Estimated GFR > 60 (>60) mL/min BUN/Creatinine Ratio 22.4 H (6-22) Glucose 119 H (80-110) mg/dL Calcium 9.5 (8.4-10.2) mg/dL Total Bilirubin 0.7 (0.2-1.3) mg/dL AST 33 (17-59) IU/L ALT 30 (<50) IU/L Alkaline Phosphatase 54 (38-126) U/L Total Creatine Kinase 56 (55-170) U/L Troponin I < 0.012 < 0.012 (0.01-0.034) ng/mL Total Protein 7.6 (6.3-8.2) g/dL Albumin 4.6 (3.5-5.0) g/dL Globulin 3.0 (1.7-4.1) g/dL Albumin/Globulin Ratio 1.5 (1.0-2.8) Lipase 216 (23-300) U/L Imaging Data Chest x-ray: Radiologist's Impression: PROCEDURE: XR CHEST 1V INDICATIONS: chest pain TECHNIQUE: One view of the chest was acquired. COMPARISON: [facility], , XR CHEST 1V, 03/09/2019, 10:07. FINDINGS: Surgical changes and devices: None. Lungs and pleura: Lungs are clear. No pleural effusions or pneumothorax. Mediastinum: Mediastinal contours appear normal. Heart size is normal. Bones and chest wall: No suspicious bony lesions. Overlying soft tissues appear unremarkable. IMPRESSION: No acute cardiopulmonary abnormality is seen. Dictated by: Keysha Jarrett M.D. on 06/19/2023 at 9:50 Approved by: Keysha Jarrett M.D. on 06/19/2023 at 9:50 ECG Data Interpretation: Normal sinus rhythm, 84 beats per minute. Normal RI, normal axis, normal intervals, no STEMI MDM Narrative Medical decision making narrative: Well-appearing patient with chest pain before arrival. Resting comfortably in bed, currently pain-free. Initial EKG normal sinus rhythm without concerning findings. Initial troponin undetectable. Chest x-ray negative for acute process. We will obtain 2 hour troponin and disposition pending this read. 2 hour troponin is also undetectable. Patient has remained pain-free in the emergency department. With normal EKG, undetectable troponin x2, normal chest x-ray patient is stable for discharge home. Heart score 3 based on age and risk factors. Patient advised of all lab and imaging findings, I did recommend based on his age and risk factors that he follow up with Cardiology, however no indication for admission at this time. ED return precautions discussed at bedside. Patient expressed understanding of the plan and is in agreement at this time. All questions answered at the time of discharge. Discharge Plan Departure Patient Disposition: Home Clinical Impression: Chest pain Instructions: DI for Chest Pain Activity Restrictions/Additional Instructions: FOLLOW UP WITH CARDIOLOGY, ESPECIALLY IF YOU CONTINUED TO HAVE CHEST PAINS. Prescriptions: No Action cyclobenzaprine 10 mg tablet 10 mg PO BID PRN (Reason: muscle spasm) Qty: 7 0RF Referrals: Anna Hawkins MD [Physician] - Yulissa Judge DO [Primary Care Provider] - Stand Alone Forms: Patient Portal/API
[2023-06-19 09:44] LABS: Add Manual Diff / Slide Review NO; Basophils Absolute Auto 100 /uL (0-100); Basophils Percent Auto 0.7 % (0-2); Eosinophils Absolute Auto 200 /uL (0-450); Eosinophils Percent Auto 1.9 % (2-4); Hematocrit 39.4 % (41-53); Hemoglobin 13.7 g/dL (13.5-17.5); Lymphocytes Absolute Auto 2100 /uL (1100-4500); Lymphocytes Percent Auto 24.5 % (25-40); Mean Corpuscular HGB Conc 34.7 % (30-36); Mean Corpuscular Hemoglobin 31.7 PG (26-34); Mean Corpuscular Volume 91.3 fL (80-100); Monocytes Absolute Auto 900 /uL (0-900); Monocytes Percent Auto 10.3 % (3-14); Neutrophils Absolute Auto 5400 /uL (1500-7000); Neutrophils Percent Auto 62.6 % (50-75); Platelet Count 218 X10^3/uL (150-400); Red Blood Cell Count 4.32 X10^6/uL (4.5-5.9); White Blood Cell Count 8.6 X10^3/uL (4.5-11.0)
[2023-06-19 09:58] LABS: Alanine Aminotransferase 30 IU/L (<50); Albumin 4.6 g/dL (3.5-5.0); Albumin Globulin Ratio 1.5 (1.0-2.8); Alkaline Phosphatase 54 U/L (38-126); Aspartate Aminotransferase 33 IU/L (17-59); BUN Creatinine Ratio 22.4 (6-22); Bilirubin Total 0.7 mg/dL (0.2-1.3); Blood Urea Nitrogen 17 mg/dL (9-20); Calcium 9.5 mg/dL (8.4-10.2); Carbon Dioxide 30 mmol/L (22-32); Chloride 102 mmol/L (98-107); Creatine Kinase 56 U/L (55-170); Estimated Glomerular Filt Rate > 60 mL/min (>60); Glucose 119 mg/dL (80-110); HEMOLYSIS < 15 (0-50); Lipase 216 U/L (23-300); Potassium 3.8 mmol/L (3.4-5.1); Sodium 136 mmol/L (137-145); Total Protein 7.6 g/dL (6.3-8.2)
[2023-06-19 10:08] LABS: Troponin I < 0.012 ng/mL (0.01-0.034)
[2023-06-19] MEDS: ASPIRIN 81 MG CHEW TAB 324 MG PO (11:01)
[2023-06-19] MEDS: SODIUM CHLORIDE 0.9% 1,000 ML 150 ML IV (11:04)
[2023-06-19 12:58] LABS: Troponin I < 0.012 ng/mL (0.01-0.034)
== END 2023-06-19 13:43 | disposition home or self-care (01) ==
PROVIDERS: Emergency Provider Emergency Medicine; PCP Family Medicine
DX: R07.9 Chest pain, unspecified (principal)
CPT/HCPCS: 36415; 71045; 80053; 82550; 83690; 84484; 85025; 93005; 99284

== ENCOUNTER 2023-10-31 08:58 | Emergency (ER) | payer OTHER, SELFPAY ==
[2023-10-31 09:11] VITALS: BP 151/90; PULSE 81; RESP 16; TEMP 36.6; O2SAT 97; BMI 29.7
--- NOTE | 2023-10-31 09:11 | DI.RAD.S_ITS ---
PROCEDURE: XR KNEE LT 3V INDICATIONS: knee pain after injury TECHNIQUE: 3 views of the knee were acquired. COMPARISON: None. FINDINGS: Bones: No fractures or dislocations. No suspicious bony lesions. Mild tricompartmental osteoarthritis. Soft tissues: Small joint effusion. No suspicious soft tissue calcifications. IMPRESSION: No acute bony abnormality. Small nonspecific joint effusion. Dictated by: Sindy Matt MD, PhD on 10/31/2023 at 9:27 Approved by: Sindy Matt MD, PhD on 10/31/2023 at 9:31
--- NOTE | 2023-10-31 09:38 | ED_ITS ---
HPI - Extremity Problem General Chief complaint: Extremity Problem,Nontraumatic Stated complaint: L knee problem per pt Time Seen by Provider: 10/31/23 09:10 Source: patient Mode of arrival: Ambulatory History of Present Illness HPI Narrative: Patient is a 58-year-old male who is here for evaluation of left knee pain and swelling. A couple weeks ago he started to have some pain and swelling in his left knee. He went to his primary doctor. They recommended physical therapy. He declined physical therapy. He has been on anti-inflammatories and an anti- inflammatory cream since then. He states that today he was getting up into his truck. He states that his right knee (which is not the knee that is causing him issues) was actually on the truck step. He states he was twisting to get into the truck when he felt and heard a pop in his left knee and since that time has had discomfort. He states the pain is ?inside? his knee. He did not fall. No other injuries from the event. Related Data Previous Rx's Medication Instructions Recorded cyclobenzaprine 10 mg tablet 10 mg PO BID PRN muscle spasm #7 02/28/20 tabs Allergies Allergy/AdvReac Type Severity Reaction Status Date / Time No Known Drug Allergies Allergy Verified 03/09/19 10:12 Review of Systems Review of Systems Narrative: See HPI Patient History Medical History GERD (gastroesophageal reflux disease) Back pain Family History Other Heart disease Social History Smoking Status: Former smoker Smoking Status: Former smoker alcohol intake frequency: holidays/special occasions only Alcohol type: beer Substance Use Type: does not use Exam Initial Vital Signs Initial Vital Signs: Vital Signs Temperature 97.8 F 10/31/23 09:11 Pulse Rate 81 10/31/23 09:11 Respiratory Rate 16 10/31/23 09:11 Blood Pressure 151/90 H 10/31/23 09:11 Pulse Oximetry 97 10/31/23 09:11 Oxygen Delivery Method Room Air 10/31/23 09:11 Const General: cooperative, healthy appearing and comfortable Skin General: no rashes or lesions noted Neuro Sensory Exam: no sensory deficits noted Extrem Other: Small effusion of the left knee noted on exam. ACL, PCL, MCL, LCL are all intact with functional testing. His medial hamstring tendon is nontender and intact. He does have tenderness along the lateral joint line and also the lateral hamstring tendon however the hamstring tendon appears to be intact. No deficits noted along the hamstring muscles. He does have some tenderness along the lateral joint line. Medial joint lines unremarkable. Quadriceps tendon and patellar tendon are unremarkable. Patient is ambulatory. Course Orders Ordered: ED Orders 10/31/23 09:11 XR knee LT 3V Stat Vital Signs Vital signs: Vital Signs - 8 hr 10/31/23 09:11 Temperature 97.8 F Pulse Rate 81 Respiratory Rate 16 Blood Pressure 151/90 H Pulse Oximetry 97 Oxygen Delivery Method Room Air MDM - Extremity (Nontraumatic) Imaging Data Extremity x-ray #1: Radiologist's Impression: PROCEDURE: XR KNEE LT 3V INDICATIONS: knee pain after injury TECHNIQUE: 3 views of the knee were acquired. COMPARISON: None. FINDINGS: Bones: No fractures or dislocations. No suspicious bony lesions. Mild tricompartmental osteoarthritis. Soft tissues: Small joint effusion. No suspicious soft tissue calcifications. IMPRESSION: No acute bony abnormality. Small nonspecific joint effusion. Critical Care Time Critical Care Time Attestation: X-ray show no bony abnormality. Low suspicion for septic joint. Low suspicion for gout. I do suspect a hamstring injury although I am not convinced that is completely torn. He also most likely has a meniscus injury. We discussed the effusion. There was no indication for more advanced imaging such as an MRI today. Provided reassurance. He has a knee brace at home that he can use. He also has anti-inflammatories. Recommended that he ambulate as tolerated. Activity as tolerated. Contact his primary doctor if his symptoms do not improve in the next 10-14 days. Discharge Plan Departure Patient Disposition: Home Clinical Impression: Effusion of knee joint, left Instructions: Meniscal Tear, How To Perform RICE (Rest, Ice, Compress, Elevate) Activity Restrictions/Additional Instructions: You have no restrictions on your activities. Just let your body tell you how much that you can do and what you should avoid. I gave you information about a meniscus tear although I am not 100% convinced that that is what is going on today. If your symptoms are not improving in the next 10-14 days you may need follow-up with your primary care doctor to discuss either referral to see Orthopedic surgery or potentially more advanced imaging such as an MRI. Prescriptions: No Action cyclobenzaprine 10 mg tablet 10 mg PO BID PRN (Reason: muscle spasm) Qty: 7 0RF Referrals: Yulissa Judge DO [Primary Care Provider] - Stand Alone Forms: Patient Portal/API
== END 2023-10-31 10:11 | disposition home or self-care (01) ==
PROVIDERS: Emergency Provider Emergency Medicine; PCP Family Medicine
DX: M25.462 Effusion, left knee (principal); X58.XXXA Exposure to other specified factors, initial encounter
CPT/HCPCS: 73562; 99281; 99283